=== PATIENT | male | born 1945 | race Hispanic/Latino ===

== ENCOUNTER 2021-03-24 16:49 | Inpatient (IN) | payer MEDICARE ==
[~2021-03-24] VITALS: Ht 172.7 cm; Wt 78.5 kg
[2021-03-24] MEDS ORDERED: DEXAMETHASONE SOD PHOSPHATE 4 MG/ML 1ML VIAL IVP ONE (17:00)
[2021-03-24] MEDS ORDERED: CEFTRIAXONE 1G VIAL 1 GM in 0.9%NACL 100ML 100 ML IV ONE (17:00)
[2021-03-24 17:11] LABS: HEMATOCRIT 39.6 % (42-54); LYMPHOCYTES % (AUTO) 16.8 % (21.0-51.0); MEAN CORPUSCULAR HEMOGLOBIN 29.1 pg (27.0-33.0); MEAN CORPUSCULAR HGB CONC 34.8 g/dL (32.0-36.0); MEAN CORPUSCULAR VOLUME 83.5 fL (79-99); MONOCYTES % (AUTO) 7.3 % (3.0-13.0); NEUTROPHILS % (AUTO) 75.7 % (40.0-77.0); PLATELET COUNT (AUTO) 157 K/uL (130-400); RED BLOOD CELL COUNT(AUTO) 4.74 MIL/uL (4.50-6.20); RED CELL DISTRIBUTION WIDTH 12.9 % (11.0-15.5); WHITE BLOOD COUNT (AUTO) 4.5 K/uL (4.8-10.8)
[2021-03-24 17:22] LABS: ABG BASE EXCESS 1.1 mmol/L (-2.0-3.0); ABG HCO3 24.1 mmol/L (21.0-28.0); ABG PCO2 34 mmHg (35-48)
[2021-03-24 17:25] LABS: CREATININE 0.7 mg/dL (0.5-1.5); POTASSIUM 3.4 mmol/L (3.5-5.1)
[2021-03-24] MEDS ORDERED: CEFTRIAXONE 1G VIAL IVP SCH ×2 (17:30→21:30)
[2021-03-24 17:31] LABS: ALBUMIN 2.8 g/dL (3.5-5.0); BILIRUBIN,TOTAL 0.6 mg/dL (0.2-1.0); CRP QUANTITATIVE 159.7 mg/L (0.00-9.0); TOTAL PROTEIN, SERUM 7.6 g/dL (6.0-8.3)
[2021-03-24] MEDS ORDERED: ALBUTEROL INHALER 90MCG/INH IH PRN (18:00)
[2021-03-24] MEDS: DEXAMETHASONE SOD PHOSPHATE 4 MG/ML 1ML VIAL IVP SCH (18:00)
[2021-03-24] MEDS ORDERED: PHARMACY COMMUNICATION**REMDESIVIR ORDER MISC SCH (18:00)
[2021-03-24] MEDS ORDERED: LACTULOSE 20 GM/30 ML UDCUP PO PRN (18:00)
[2021-03-24] MEDS ORDERED: COMPOUND IV REFRIGERATED 1 EACH IVSOLN MISC PRN (18:30)
[2021-03-24 18:34] LABS: ERYTHROCYTE SEDIMENTATION RATE 100 MM/HR (0-20)
[2021-03-24 18:53] LABS: INR 0.93 (0.85-1.15); PROTHROMBIN TIME 10.2 SEC (9.6-11.6)
[2021-03-24 18:54] LABS: PARTIAL THROMBOPLASTIN TIME 29.8 SEC (26.3-35.5)
[2021-03-24 18:59] LABS: CHOLESTEROL 162 mg/dL (<200); HDL CHOLESTEROL 41 mg/dL (29-71); LDL DIRECT 93 mg/dL (0-99); TRIGLYCERIDES 98 mg/dL (30-200)
[2021-03-24] MEDS: REMDESIVIR (EUA) 520 200 MG in 0.9% NACL 250ML 250 ML IV SCH (19:49)
[2021-03-24 19:51] VITALS: BP 156/63
[2021-03-24 20:24] VITALS: BP 137/67
[2021-03-24] MEDS ORDERED: POTASSIUM CHLORIDE 20MEQ/100ML 100 ML IV PRN (21:00)
[2021-03-24] MEDS ORDERED: LIDOCAINE HCL-MPF 1% 2ML VIAL IV PRN (21:00)
[2021-03-24] MEDS ORDERED: AZITHROMYCIN 500MG+NS 250ML IV SCH (21:00)
[2021-03-24] MEDS ORDERED: 0.9%NACL 1000ML 1,000 ML IV SCH (21:00)
[2021-03-24] MEDS ORDERED: KCL 20 MEQ ERTAB PO PRN (21:00)
[2021-03-24] MEDS: 0.9% NACL 250ML IVPB SCH (21:00)
[2021-03-24] MEDS ORDERED: HYDRALAZINE 20MG/ML VIAL IV PRN (21:30)
[2021-03-24] MEDS: INSULIN HUMULIN R 100 UNIT/ML 3ML SQ SCH (21:36)
[2021-03-24] MEDS: 0.9%NACL 1000ML 1,000 ML IV SCH (22:51)
[2021-03-25] VITALS (7 sets, daily range): BP systolic 106–129; BP diastolic 43–81
[2021-03-25 04:02] LABS: ABG BASE EXCESS -2.2 mmol/L (-2.0-3.0); ABG HCO3 21.7 mmol/L (21.0-28.0); ABG OXYGEN SATURATION 94.2 % (95.0-99.0); ABG PCO2 34 mmHg (35-48)
[2021-03-25 05:50] LABS: BASOPHILS % (AUTO) 0.3 % (0.0-5.0); HEMATOCRIT 37.9 % (42-54); LYMPHOCYTES % (AUTO) 14.4 % (21.0-51.0); MEAN CORPUSCULAR HEMOGLOBIN 29.3 pg (27.0-33.0); MEAN CORPUSCULAR VOLUME 86.1 fL (79-99); MONOCYTES % (AUTO) 7.3 % (3.0-13.0); NEUTROPHILS % (AUTO) 77.4 % (40.0-77.0); PLATELET COUNT (AUTO) 147 K/uL (130-400); WHITE BLOOD COUNT (AUTO) 3.5 K/uL (4.8-10.8)
[2021-03-25 06:09] LABS: HEMOGLOBIN A1C 11.4 % (4.0-6.0)
[2021-03-25 06:20] LABS: ALBUMIN 2.4 g/dL (3.5-5.0); BILIRUBIN,TOTAL 0.4 mg/dL (0.2-1.0); CREATININE 0.7 mg/dL (0.5-1.5); CRP QUANTITATIVE 168.7 mg/L (0.00-9.0); POTASSIUM 3.7 mmol/L (3.5-5.1)
[2021-03-25] MEDS: REMDESIVIR LABS MISC SCH (06:34)
[2021-03-25] MEDS: 0.9%NACL 1000ML 1,000 ML IV SCH (07:41)
[2021-03-25] MEDS: ATORVASTATIN 20 MG TABLET PO SCH (08:15)
[2021-03-25] MEDS: FAMOTIDINE 20MG TAB PO SCH ×2 (08:15→21:43)
[2021-03-25] MEDS: AMLODIPINE 5 MG TAB PO SCH (08:15)
[2021-03-25] MEDS: INSULIN HUMULIN R 100 UNIT/ML 3ML SQ SCH ×4 (08:15→21:44)
[2021-03-25] MEDS ORDERED: ENOXAPARIN SODIUM 40 MG/0.4 ML SYRINGE SQ SCH (09:00)
[2021-03-25] MEDS ORDERED: INSULIN GLARGINE 100 UNITS/ML 10 ML VIAL SQ ONE (09:00)
[2021-03-25] MEDS ORDERED: POTASSIUM CHLORIDE 10% ELIXIR 20 MEQ/15 ML UDCUP PO ONE (09:30)
[2021-03-25] MEDS ORDERED: LORAZEPAM 0.5 MG TABLET ONE (15:32)
[2021-03-25] MEDS: DEXAMETHASONE SOD PHOSPHATE 4 MG/ML 1ML VIAL IVP SCH (18:24)
[2021-03-25] MEDS: REMDESIVIR (EUA) 520 100 MG in 0.9% NACL 250ML 250 ML IV SCH (19:20)
[2021-03-25] MEDS: REMDESIVIR (EUA) 520 200 MG in 0.9% NACL 250ML 250 ML IV SCH (20:00)
[2021-03-25] MEDS: BARICITINIB (EUA) 2 MG TABLET PO SCH (20:57)
[2021-03-25] MEDS: 0.9% NACL 250ML IVPB SCH (21:00)
[2021-03-25] MEDS: ENOXAPARIN SODIUM 40 MG/0.4 ML SYRINGE SQ SCH (21:45)
[2021-03-25] MEDS: ACETAMINOPHEN 325 MG TAB PO PRN (22:16)
[2021-03-26 00:20] VITALS: BP 124/63
[2021-03-26 04:18] VITALS: BP 113/55
[2021-03-26 04:48] LABS: LYMPHOCYTES % (AUTO) 16.5 % (21.0-51.0); MEAN CORPUSCULAR HEMOGLOBIN 29.7 pg (27.0-33.0); MEAN CORPUSCULAR HGB CONC 34.3 g/dL (32.0-36.0); MEAN CORPUSCULAR VOLUME 86.4 fL (79-99); PLATELET COUNT (AUTO) 187 K/uL (130-400); RED BLOOD CELL COUNT(AUTO) 4.28 MIL/uL (4.50-6.20); RED CELL DISTRIBUTION WIDTH 13.2 % (11.0-15.5); WHITE BLOOD COUNT (AUTO) 4.4 K/uL (4.8-10.8)
[2021-03-26 05:05] LABS: ALBUMIN 2.3 g/dL (3.5-5.0); BILIRUBIN,TOTAL 0.4 mg/dL (0.2-1.0); CREATININE 0.8 mg/dL (0.5-1.5); CRP QUANTITATIVE 84.9 mg/L (0.00-9.0); MAGNESIUM 2.4 mg/dL (1.80-2.40); TOTAL PROTEIN, SERUM 6.6 g/dL (6.0-8.3)
[2021-03-26] MEDS: REMDESIVIR LABS MISC SCH (06:01)
[2021-03-26] MEDS: INSULIN HUMULIN R 100 UNIT/ML 3ML SQ SCH ×4 (06:51→20:00)
[2021-03-26 07:52] VITALS: BP 125/58
[2021-03-26] MEDS: ATORVASTATIN 20 MG TABLET PO SCH (09:49)
[2021-03-26] MEDS: AMLODIPINE 5 MG TAB PO SCH (09:49)
[2021-03-26] MEDS: ENOXAPARIN SODIUM 40 MG/0.4 ML SYRINGE SQ SCH ×2 (09:49→19:50)
[2021-03-26] MEDS: FAMOTIDINE 20MG TAB PO SCH ×2 (09:49→19:49)
[2021-03-26 12:07] VITALS: BP 113/80
[2021-03-26] MEDS: BARICITINIB (EUA) 2 MG TABLET PO SCH (14:26)
[2021-03-26 16:36] VITALS: BP 129/66
[2021-03-26] MEDS: FUROSEMIDE 20MG VIAL IV SCH (16:38)
[2021-03-26] MEDS: DEXAMETHASONE SOD PHOSPHATE 4 MG/ML 1ML VIAL IVP SCH (16:41)
[2021-03-26] MEDS: REMDESIVIR (EUA) 520 100 MG in 0.9% NACL 250ML 250 ML IV SCH (19:48)
[2021-03-26] MEDS: INSULIN GLARGINE 100 UNITS/ML 10 ML VIAL SQ SCH (19:59)
[2021-03-26 20:12] VITALS: BP 138/50
[2021-03-26] MEDS: 0.9% NACL 250ML IVPB SCH (20:32)
[2021-03-27] VITALS (7 sets, daily range): BP systolic 101–149; BP diastolic 42–62
[2021-03-27] MEDS: FUROSEMIDE 20MG VIAL IV SCH (01:39)
[2021-03-27 04:39] LABS: HEMATOCRIT 40.2 % (42-54); LYMPHOCYTES % (AUTO) 10.5 % (21.0-51.0); MEAN CORPUSCULAR HEMOGLOBIN 29.2 pg (27.0-33.0); MEAN CORPUSCULAR HGB CONC 33.1 g/dL (32.0-36.0); MEAN CORPUSCULAR VOLUME 88.4 fL (79-99); MONOCYTES % (AUTO) 6.1 % (3.0-13.0); NEUTROPHILS % (AUTO) 82.7 % (40.0-77.0); PLATELET COUNT (AUTO) 225 K/uL (130-400); RED BLOOD CELL COUNT(AUTO) 4.55 MIL/uL (4.50-6.20); RED CELL DISTRIBUTION WIDTH 13.1 % (11.0-15.5); WHITE BLOOD COUNT (AUTO) 6.9 K/uL (4.8-10.8)
[2021-03-27 04:53] LABS: ALBUMIN 2.5 g/dL (3.5-5.0); BILIRUBIN,TOTAL 0.6 mg/dL (0.2-1.0); CREATININE 0.8 mg/dL (0.5-1.5); CRP QUANTITATIVE 45.4 mg/L (0.00-9.0); POTASSIUM 3.8 mmol/L (3.5-5.1)
[2021-03-27] MEDS: INSULIN HUMULIN R 100 UNIT/ML 3ML SQ SCH ×7 (05:42→20:29)
[2021-03-27] MEDS: REMDESIVIR LABS MISC SCH (06:00)
[2021-03-27] MEDS: DOCUSATE SODIUM 100 MG CAP PO SCH ×3 (07:46→22:41)
[2021-03-27] MEDS: AMLODIPINE 5 MG TAB PO SCH (07:46)
[2021-03-27] MEDS: ATORVASTATIN 20 MG TABLET PO SCH (07:46)
[2021-03-27] MEDS: PANTOPRAZOLE 40 MG TAB DR PO SCH ×2 (07:46→09:00)
[2021-03-27] MEDS: ENOXAPARIN SODIUM 40 MG/0.4 ML SYRINGE SQ SCH ×2 (07:47→22:17)
[2021-03-27] MEDS ORDERED: METF-446 PO (08:42)
[2021-03-27] MEDS ORDERED: GLIM4TAB36 PO (08:42)
[2021-03-27] MEDS ORDERED: VALS1TAB76 PO (08:42)
[2021-03-27] MEDS ORDERED: FAMO40TA7 PO (08:42)
[2021-03-27] MEDS ORDERED: LINA5TAB PO (08:42)
[2021-03-27] MEDS ORDERED: TAMS-1 PO (08:42)
[2021-03-27] MEDS ORDERED: SIMV-46 PO (08:42)
[2021-03-27] MEDS: BARICITINIB (EUA) 2 MG TABLET PO SCH (12:10)
[2021-03-27] MEDS: BUSPIRONE HCL 5 MG TABLET PO SCH ×2 (14:20→22:17)
[2021-03-27] MEDS: NYSTATIN 100000 UNIT/ML 5ML UDCUP PO SCH ×2 (16:59→22:17)
[2021-03-27] MEDS: DEXAMETHASONE SOD PHOSPHATE 4 MG/ML 1ML VIAL IVP SCH (17:00)
[2021-03-27] MEDS: 0.9% NACL 250ML IVPB SCH (21:00)
[2021-03-27] MEDS: SENNOSIDES 8.6 MG TABLET PO SCH (22:17)
[2021-03-27] MEDS: INSULIN GLARGINE 100 UNITS/ML 10 ML VIAL SQ SCH (22:18)
[2021-03-27] MEDS: REMDESIVIR (EUA) 520 100 MG in 0.9% NACL 250ML 250 ML IV SCH (23:11)
[2021-03-28 03:59] VITALS: BP 134/85
[2021-03-28 04:28] LABS: HEMATOCRIT 37.8 % (42-54); MEAN CORPUSCULAR HGB CONC 33.1 g/dL (32.0-36.0); MEAN CORPUSCULAR VOLUME 87.7 fL (79-99); MONOCYTES % (AUTO) 5.2 % (3.0-13.0); NEUTROPHILS % (AUTO) 87.2 % (40.0-77.0); PLATELET COUNT (AUTO) 237 K/uL (130-400); RED BLOOD CELL COUNT(AUTO) 4.31 MIL/uL (4.50-6.20); RED CELL DISTRIBUTION WIDTH 12.9 % (11.0-15.5); WHITE BLOOD COUNT (AUTO) 8.4 K/uL (4.8-10.8)
[2021-03-28 04:54] LABS: ALBUMIN 2.4 g/dL (3.5-5.0); BILIRUBIN,TOTAL 0.6 mg/dL (0.2-1.0); CREATININE 0.7 mg/dL (0.5-1.5); CRP QUANTITATIVE 53.6 mg/L (0.00-9.0); POTASSIUM 3.7 mmol/L (3.5-5.1); TOTAL PROTEIN, SERUM 6.7 g/dL (6.0-8.3)
[2021-03-28] MEDS: REMDESIVIR LABS MISC SCH (05:02)
[2021-03-28] MEDS: DOCUSATE SODIUM 100 MG CAP PO SCH ×3 (07:17→23:30)
[2021-03-28] MEDS: INSULIN HUMULIN R 100 UNIT/ML 3ML SQ SCH ×7 (07:19→21:59)
[2021-03-28 08:30] VITALS: BP 111/53
[2021-03-28] MEDS: ATORVASTATIN 20 MG TABLET PO SCH ×2 (09:00→20:23)
[2021-03-28] MEDS: AMLODIPINE 5 MG TAB PO SCH (10:38)
[2021-03-28] MEDS: PANTOPRAZOLE 40 MG TAB DR PO SCH (10:38)
[2021-03-28] MEDS: FLUCONAZOLE 200 MG/NS 100 ML 100 ML IV SCH (10:38)
[2021-03-28] MEDS: BARICITINIB (EUA) 2 MG TABLET PO SCH (10:39)
[2021-03-28] MEDS: ENOXAPARIN SODIUM 40 MG/0.4 ML SYRINGE SQ SCH ×2 (10:39→20:23)
[2021-03-28] MEDS: BUSPIRONE HCL 5 MG TABLET PO SCH ×3 (10:44→20:23)
[2021-03-28] MEDS: NYSTATIN 100000 UNIT/ML 5ML UDCUP PO SCH ×4 (10:47→20:23)
[2021-03-28 12:21] VITALS: BP 120/49
[2021-03-28] MEDS: ACETAMINOPHEN 325 MG TAB PO PRN (15:53)
[2021-03-28 16:31] VITALS: BP 114/48
[2021-03-28] MEDS: DEXAMETHASONE SOD PHOSPHATE 4 MG/ML 1ML VIAL IVP SCH (17:10)
[2021-03-28] MEDS: REMDESIVIR (EUA) 520 100 MG in 0.9% NACL 250ML 250 ML IV SCH (20:19)
[2021-03-28] MEDS: SENNOSIDES 8.6 MG TABLET PO SCH (20:23)
[2021-03-28 20:27] VITALS: BP 127/52
[2021-03-28] MEDS: INSULIN GLARGINE 100 UNITS/ML 10 ML VIAL SQ SCH (22:03)
[2021-03-29] VITALS (7 sets, daily range): BP systolic 90–130; BP diastolic 47–85
[2021-03-29] MEDS: INSULIN HUMULIN R 100 UNIT/ML 3ML SQ SCH ×7 (07:30→21:00)
[2021-03-29] MEDS: NYSTATIN 100000 UNIT/ML 5ML UDCUP PO SCH ×4 (09:06→21:42)
[2021-03-29] MEDS: AMLODIPINE 5 MG TAB PO SCH (09:07)
[2021-03-29] MEDS: PANTOPRAZOLE 40 MG TAB DR PO SCH (09:07)
[2021-03-29] MEDS: BUSPIRONE HCL 5 MG TABLET PO SCH ×3 (09:07→21:42)
[2021-03-29] MEDS: BARICITINIB (EUA) 2 MG TABLET PO SCH (09:07)
[2021-03-29] MEDS: DOCUSATE SODIUM 100 MG CAP PO SCH ×2 (09:07→13:33)
[2021-03-29] MEDS: ENOXAPARIN SODIUM 40 MG/0.4 ML SYRINGE SQ SCH ×2 (09:08→21:43)
[2021-03-29] MEDS: FLUCONAZOLE 200 MG/NS 100 ML 100 ML IV SCH (09:26)
[2021-03-29] MEDS: ACETAMINOPHEN 325 MG TAB PO PRN ×2 (10:31→17:15)
[2021-03-29] MEDS ORDERED: PHARMACY COMMUNICATION MISC SCH (15:00)
[2021-03-29] MEDS ORDERED: COMPOUND IV REFRIGERATED 1 EACH IVSOLN MISC PRN (21:00)
[2021-03-29] MEDS: ATORVASTATIN 20 MG TABLET PO SCH (21:42)
[2021-03-29] MEDS: SENNOSIDES 8.6 MG TABLET PO SCH (21:42)
[2021-03-29] MEDS: DEXAMETHASONE SOD PHOSPHATE 4 MG/ML 1ML VIAL IVP SCH (21:43)
[2021-03-29] MEDS: REMDESIVIR (EUA) 520 100 MG in 0.9% NACL 250ML 250 ML IV SCH (21:47)
[2021-03-29] MEDS: INSULIN GLARGINE 100 UNITS/ML 10 ML VIAL SQ SCH (23:24)
[2021-03-30 03:55] VITALS: BP 110/75
[2021-03-30 05:15] LABS: BASOPHILS % (AUTO) 0.1 % (0.0-5.0); EOSINOPHILS % (AUTO) 0.1 % (0.0-8.0); HEMATOCRIT 37.5 % (42-54); LYMPHOCYTES % (AUTO) 4.1 % (21.0-51.0); MEAN CORPUSCULAR HEMOGLOBIN 29.3 pg (27.0-33.0); MEAN CORPUSCULAR HGB CONC 33.3 g/dL (32.0-36.0); NEUTROPHILS % (AUTO) 93.1 % (40.0-77.0); PLATELET COUNT (AUTO) 298 K/uL (130-400); RED BLOOD CELL COUNT(AUTO) 4.26 MIL/uL (4.50-6.20); RED CELL DISTRIBUTION WIDTH 13.1 % (11.0-15.5); WHITE BLOOD COUNT (AUTO) 9.9 K/uL (4.8-10.8)
[2021-03-30 05:31] LABS: ALBUMIN 2.4 g/dL (3.5-5.0); BILIRUBIN,TOTAL 0.6 mg/dL (0.2-1.0); CREATININE 0.7 mg/dL (0.5-1.5); POTASSIUM 4.3 mmol/L (3.5-5.1)
[2021-03-30] MEDS: DOCUSATE SODIUM 100 MG CAP PO SCH ×4 (06:44→22:18)
[2021-03-30] MEDS: INSULIN HUMULIN R 100 UNIT/ML 3ML SQ SCH ×7 (06:47→20:55)
[2021-03-30 08:00] VITALS: BP 112/40
[2021-03-30] MEDS: REMDESIVIR LABS MISC SCH (09:01)
[2021-03-30] MEDS: FLUCONAZOLE 200 MG/NS 100 ML 100 ML IV SCH (09:47)
[2021-03-30] MEDS: DEXAMETHASONE SOD PHOSPHATE 4 MG/ML 1ML VIAL IVP SCH ×2 (09:48→20:35)
[2021-03-30] MEDS: AMLODIPINE 5 MG TAB PO SCH (09:48)
[2021-03-30] MEDS: ENOXAPARIN SODIUM 40 MG/0.4 ML SYRINGE SQ SCH ×2 (09:49→20:36)
[2021-03-30] MEDS: PANTOPRAZOLE 40 MG TAB DR PO SCH (09:49)
[2021-03-30] MEDS: BARICITINIB (EUA) 2 MG TABLET PO SCH (09:49)
[2021-03-30] MEDS: NYSTATIN 100000 UNIT/ML 5ML UDCUP PO SCH ×4 (09:52→20:33)
[2021-03-30] MEDS: BUSPIRONE HCL 5 MG TABLET PO SCH ×3 (09:52→20:34)
[2021-03-30] MEDS ORDERED: COMPOUND PO MISCELLANEOUS 1 EACH MISC MISC PRN (11:00)
[2021-03-30] MEDS ORDERED: PHARMACY COMMUNICATION MISC SCH (11:00)
[2021-03-30 12:00] VITALS: BP 99/41
[2021-03-30] MEDS: MAG/ALUM/SIMETH 30ML 60 ML, LIDOCAINE HCL 2% VISCOUS 60 ML, DIPHENHYDRAMINE HCL 150 MG PO SCH ×6 (13:54→20:33)
[2021-03-30 16:00] VITALS: BP 102/54
[2021-03-30] MEDS: LACTULOSE 20 GM/30 ML UDCUP PO SCH ×2 (16:30→20:32)
[2021-03-30 20:31] VITALS: BP 111/69
[2021-03-30] MEDS: REMDESIVIR (EUA) 520 100 MG in 0.9% NACL 250ML 250 ML IV SCH (20:32)
[2021-03-30] MEDS: ATORVASTATIN 20 MG TABLET PO SCH (20:34)
[2021-03-30] MEDS: SENNOSIDES 8.6 MG TABLET PO SCH (20:34)
[2021-03-30] MEDS: INSULIN GLARGINE 100 UNITS/ML 10 ML VIAL SQ SCH (20:54)
[2021-03-30 23:33] VITALS: BP 94/69
[2021-03-31 03:52] VITALS: BP 110/67
[2021-03-31] MEDS: REMDESIVIR LABS MISC SCH (05:08)
[2021-03-31] MEDS: INSULIN HUMULIN R 100 UNIT/ML 3ML SQ SCH ×7 (06:19→21:00)
[2021-03-31] MEDS: DOCUSATE SODIUM 100 MG CAP PO SCH ×3 (06:22→21:55)
[2021-03-31 07:46] VITALS: BP 132/59
[2021-03-31] MEDS: BARICITINIB (EUA) 2 MG TABLET PO SCH (10:17)
[2021-03-31] MEDS: PANTOPRAZOLE 40 MG TAB DR PO SCH (10:17)
[2021-03-31] MEDS: NYSTATIN 100000 UNIT/ML 5ML UDCUP PO SCH ×4 (10:17→21:32)
[2021-03-31] MEDS: AMLODIPINE 5 MG TAB PO SCH (10:18)
[2021-03-31] MEDS: LACTULOSE 20 GM/30 ML UDCUP PO SCH ×2 (10:18→21:17)
[2021-03-31] MEDS: DEXAMETHASONE SOD PHOSPHATE 4 MG/ML 1ML VIAL IVP SCH ×2 (10:19→21:19)
[2021-03-31] MEDS: BUSPIRONE HCL 5 MG TABLET PO SCH ×3 (10:19→21:16)
[2021-03-31] MEDS: ENOXAPARIN SODIUM 40 MG/0.4 ML SYRINGE SQ SCH ×2 (10:20→21:55)
[2021-03-31] MEDS: FLUCONAZOLE 200 MG/NS 100 ML 100 ML IV SCH (10:20)
[2021-03-31] MEDS: MAG/ALUM/SIMETH 30ML 60 ML, LIDOCAINE HCL 2% VISCOUS 60 ML, DIPHENHYDRAMINE HCL 150 MG PO SCH ×9 (10:22→21:17)
[2021-03-31 11:47] VITALS: BP 105/52
[2021-03-31 16:13] VITALS: BP 126/53
[2021-03-31 19:53] VITALS: BP 127/56
[2021-03-31] MEDS ORDERED: NON-FORMULARY MEDICATION 1 EACH (Simvastatin 1 TAB) PO SCH (21:00)
[2021-03-31] MEDS: SENNOSIDES 8.6 MG TABLET PO SCH (21:16)
[2021-03-31] MEDS: TAMSULOSIN HCL 0.4 MG CAP.ER.24H PO SCH (21:16)
[2021-03-31] MEDS: ATORVASTATIN 20 MG TABLET PO SCH (21:16)
[2021-03-31] MEDS: REMDESIVIR (EUA) 520 100 MG in 0.9% NACL 250ML 250 ML IV SCH (21:19)
[2021-03-31] MEDS ORDERED: ENOXAPARIN SODIUM 80 MG/0.8 ML SQ ONE (21:30)
[2021-03-31] MEDS: INSULIN GLARGINE 100 UNITS/ML 10 ML VIAL SQ SCH (21:31)
[2021-04-01] VITALS (7 sets, daily range): BP systolic 103–131; BP diastolic 44–62
[2021-04-01 04:18] LABS: BASOPHILS % (AUTO) 0.1 % (0.0-5.0); HEMATOCRIT 38.8 % (42-54); LYMPHOCYTES % (AUTO) 4.8 % (21.0-51.0); MEAN CORPUSCULAR HEMOGLOBIN 29.6 pg (27.0-33.0); MEAN CORPUSCULAR HGB CONC 33.5 g/dL (32.0-36.0); MEAN CORPUSCULAR VOLUME 88.4 fL (79-99); MONOCYTES % (AUTO) 4.9 % (3.0-13.0); NEUTROPHILS % (AUTO) 89.4 % (40.0-77.0); PLATELET COUNT (AUTO) 311 K/uL (130-400); RED BLOOD CELL COUNT(AUTO) 4.39 MIL/uL (4.50-6.20); RED CELL DISTRIBUTION WIDTH 13.2 % (11.0-15.5); WHITE BLOOD COUNT (AUTO) 12.6 K/uL (4.8-10.8)
[2021-04-01 04:55] LABS: ALBUMIN 2.4 g/dL (3.5-5.0); BILIRUBIN,TOTAL 0.5 mg/dL (0.2-1.0); CREATININE 0.7 mg/dL (0.5-1.5); CRP QUANTITATIVE 42.6 mg/L (0.00-9.0); POTASSIUM 4.4 mmol/L (3.5-5.1)
[2021-04-01] MEDS: REMDESIVIR LABS MISC SCH (05:40)
[2021-04-01] MEDS: INSULIN HUMULIN R 100 UNIT/ML 3ML SQ SCH ×7 (06:22→20:38)
[2021-04-01] MEDS: DOCUSATE SODIUM 100 MG CAP PO SCH ×3 (06:35→23:24)
[2021-04-01] MEDS: LACTULOSE 20 GM/30 ML UDCUP PO SCH ×2 (07:41→20:34)
[2021-04-01] MEDS: DEXAMETHASONE SOD PHOSPHATE 4 MG/ML 1ML VIAL IVP SCH (09:00)
[2021-04-01] MEDS: FLUCONAZOLE 200 MG/NS 100 ML 100 ML IV SCH (09:00)
[2021-04-01] MEDS: BUSPIRONE HCL 5 MG TABLET PO SCH ×3 (09:06→20:34)
[2021-04-01] MEDS: MAG/ALUM/SIMETH 30ML 60 ML, LIDOCAINE HCL 2% VISCOUS 60 ML, DIPHENHYDRAMINE HCL 150 MG PO SCH ×9 (09:06→21:00)
[2021-04-01] MEDS: BARICITINIB (EUA) 2 MG TABLET PO SCH (09:06)
[2021-04-01] MEDS: NYSTATIN 100000 UNIT/ML 5ML UDCUP PO SCH ×4 (09:06→20:35)
[2021-04-01] MEDS: CLOPIDOGREL 75MG TAB PO SCH (09:14)
[2021-04-01] MEDS: PANTOPRAZOLE 40 MG TAB DR PO SCH (09:14)
[2021-04-01] MEDS: ENOXAPARIN SODIUM 40 MG/0.4 ML SYRINGE SQ SCH ×2 (09:15→20:37)
[2021-04-01] MEDS: FLUCONAZOLE 100 MG TAB PO SCH (11:33)
[2021-04-01] MEDS: REMDESIVIR (EUA) 520 100 MG in 0.9% NACL 250ML 250 ML IV SCH (20:34)
[2021-04-01] MEDS: ATORVASTATIN 20 MG TABLET PO SCH (20:34)
[2021-04-01] MEDS: TAMSULOSIN HCL 0.4 MG CAP.ER.24H PO SCH (20:35)
[2021-04-01] MEDS: SENNOSIDES 8.6 MG TABLET PO SCH (20:35)
[2021-04-01] MEDS: INSULIN GLARGINE 100 UNITS/ML 10 ML VIAL SQ SCH (20:41)
[2021-04-01] MEDS: BENZONATATE 100 MG CAPSULE PO PRN (23:58)
[2021-04-02] MEDS: GUAIFENESIN-DM 200/20 MG 10 ML PO PRN (00:11)
[2021-04-02 04:18] VITALS: BP 134/71
[2021-04-02 04:21] LABS: BASOPHILS % (AUTO) 0.1 % (0.0-5.0); EOSINOPHILS % (AUTO) 0.1 % (0.0-8.0); HEMATOCRIT 39.1 % (42-54); LYMPHOCYTES % (AUTO) 4.5 % (21.0-51.0); MEAN CORPUSCULAR HGB CONC 33.2 g/dL (32.0-36.0); MEAN CORPUSCULAR VOLUME 87.3 fL (79-99); MONOCYTES % (AUTO) 5.4 % (3.0-13.0); PLATELET COUNT (AUTO) 324 K/uL (130-400); RED BLOOD CELL COUNT(AUTO) 4.48 MIL/uL (4.50-6.20); RED CELL DISTRIBUTION WIDTH 13.2 % (11.0-15.5); WHITE BLOOD COUNT (AUTO) 17.4 K/uL (4.8-10.8)
[2021-04-02 04:43] LABS: ALBUMIN 2.5 g/dL (3.5-5.0); BILIRUBIN,TOTAL 0.6 mg/dL (0.2-1.0); CREATININE 0.8 mg/dL (0.5-1.5); POTASSIUM 4.1 mmol/L (3.5-5.1); TOTAL PROTEIN, SERUM 7.2 g/dL (6.0-8.3)
[2021-04-02] MEDS: REMDESIVIR LABS MISC SCH (06:03)
[2021-04-02] MEDS: INSULIN HUMULIN R 100 UNIT/ML 3ML SQ SCH ×7 (07:30→20:33)
[2021-04-02 08:09] VITALS: BP 125/64
[2021-04-02] MEDS: DEXAMETHASONE SOD PHOSPHATE 4 MG/ML 1ML VIAL IVP SCH (08:57)
[2021-04-02] MEDS: NYSTATIN 100000 UNIT/ML 5ML UDCUP PO SCH ×4 (08:58→20:32)
[2021-04-02] MEDS: PANTOPRAZOLE 40 MG TAB DR PO SCH (08:58)
[2021-04-02] MEDS: BARICITINIB (EUA) 2 MG TABLET PO SCH (08:58)
[2021-04-02] MEDS: CLOPIDOGREL 75MG TAB PO SCH (08:58)
[2021-04-02] MEDS: LACTULOSE 20 GM/30 ML UDCUP PO SCH ×2 (08:58→20:32)
[2021-04-02] MEDS: BUSPIRONE HCL 5 MG TABLET PO SCH ×3 (08:58→20:31)
[2021-04-02] MEDS: FLUCONAZOLE 100 MG TAB PO SCH (08:59)
[2021-04-02] MEDS: ENOXAPARIN SODIUM 40 MG/0.4 ML SYRINGE SQ SCH ×2 (09:00→21:26)
[2021-04-02] MEDS: DOCUSATE SODIUM 100 MG CAP PO SCH ×3 (09:11→20:32)
[2021-04-02] MEDS: MAG/ALUM/SIMETH 30ML 60 ML, LIDOCAINE HCL 2% VISCOUS 60 ML, DIPHENHYDRAMINE HCL 150 MG PO SCH ×6 (09:15→13:34)
[2021-04-02 11:44] VITALS: BP 126/66
[2021-04-02 15:55] VITALS: BP 135/63
[2021-04-02 19:40] VITALS: BP 123/56
[2021-04-02] MEDS: REMDESIVIR (EUA) 520 100 MG in 0.9% NACL 250ML 250 ML IV SCH (20:31)
[2021-04-02] MEDS: TAMSULOSIN HCL 0.4 MG CAP.ER.24H PO SCH (20:32)
[2021-04-02] MEDS: ATORVASTATIN 20 MG TABLET PO SCH (20:32)
[2021-04-02] MEDS: SENNOSIDES 8.6 MG TABLET PO SCH (20:32)
[2021-04-02] MEDS: NACL NASAL SPRAY 120 SPRAY/BOTTLE NS PRN (20:32)
[2021-04-02] MEDS: BENZONATATE 100 MG CAPSULE PO PRN (20:32)
[2021-04-02] MEDS: TRAZODONE HCL 50 MG TAB PO SCH (20:33)
[2021-04-02] MEDS: INSULIN GLARGINE 100 UNITS/ML 10 ML VIAL SQ SCH (21:00)
[2021-04-02 23:44] VITALS: BP 123/56
[2021-04-03 03:22] VITALS: BP 92/52
[2021-04-03 04:52] LABS: BASOPHILS % (AUTO) 0.1 % (0.0-5.0); HEMATOCRIT 39.7 % (42-54); LYMPHOCYTES % (AUTO) 4.6 % (21.0-51.0); MEAN CORPUSCULAR HEMOGLOBIN 29.2 pg (27.0-33.0); MEAN CORPUSCULAR HGB CONC 33.2 g/dL (32.0-36.0); MEAN CORPUSCULAR VOLUME 87.8 fL (79-99); MONOCYTES % (AUTO) 4.3 % (3.0-13.0); NEUTROPHILS % (AUTO) 90.4 % (40.0-77.0); PLATELET COUNT (AUTO) 303 K/uL (130-400); RED BLOOD CELL COUNT(AUTO) 4.52 MIL/uL (4.50-6.20); RED CELL DISTRIBUTION WIDTH 13.3 % (11.0-15.5)
[2021-04-03 05:16] LABS: ALBUMIN 2.4 g/dL (3.5-5.0); BILIRUBIN,TOTAL 0.5 mg/dL (0.2-1.0); CREATININE 0.6 mg/dL (0.5-1.5); POTASSIUM 3.7 mmol/L (3.5-5.1); TOTAL PROTEIN, SERUM 7.2 g/dL (6.0-8.3)
[2021-04-03] MEDS: MAG/ALUM/SIMETH 30ML 60 ML, LIDOCAINE HCL 2% VISCOUS 60 ML, DIPHENHYDRAMINE HCL 150 MG PO SCH ×12 (05:23→20:56)
[2021-04-03] MEDS: BENZONATATE 100 MG CAPSULE PO PRN ×2 (05:24→22:17)
[2021-04-03] MEDS: ACETAMINOPHEN 325 MG TAB PO PRN ×2 (05:24→22:24)
[2021-04-03] MEDS: GUAIFENESIN-DM 200/20 MG 10 ML PO PRN ×2 (05:25→20:56)
[2021-04-03] MEDS: INSULIN HUMULIN R 100 UNIT/ML 3ML SQ SCH ×7 (05:44→20:57)
[2021-04-03] MEDS: PANTOPRAZOLE 40 MG TAB DR PO SCH (08:18)
[2021-04-03] MEDS: LACTULOSE 20 GM/30 ML UDCUP PO SCH ×2 (08:18→20:57)
[2021-04-03] MEDS: BARICITINIB (EUA) 2 MG TABLET PO SCH (08:18)
[2021-04-03] MEDS: BUSPIRONE HCL 5 MG TABLET PO SCH ×3 (08:18→20:56)
[2021-04-03] MEDS: DOCUSATE SODIUM 100 MG CAP PO SCH ×3 (08:18→23:30)
[2021-04-03] MEDS: FLUCONAZOLE 100 MG TAB PO SCH (08:19)
[2021-04-03] MEDS: CLOPIDOGREL 75MG TAB PO SCH (08:19)
[2021-04-03] MEDS: NYSTATIN 100000 UNIT/ML 5ML UDCUP PO SCH ×2 (08:19→14:59)
[2021-04-03] MEDS: ENOXAPARIN SODIUM 40 MG/0.4 ML SYRINGE SQ SCH ×2 (08:20→20:56)
[2021-04-03] MEDS: DEXAMETHASONE SOD PHOSPHATE 4 MG/ML 1ML VIAL IVP SCH (08:20)
[2021-04-03 08:55] VITALS: BP 125/62
[2021-04-03 12:22] VITALS: BP 124/57
[2021-04-03 16:30] VITALS: BP 117/72
[2021-04-03 19:34] VITALS: BP 120/72
[2021-04-03] MEDS: TAMSULOSIN HCL 0.4 MG CAP.ER.24H PO SCH (20:56)
[2021-04-03] MEDS: SENNOSIDES 8.6 MG TABLET PO SCH (20:56)
[2021-04-03] MEDS: TRAZODONE HCL 50 MG TAB PO SCH (20:56)
[2021-04-03] MEDS: ATORVASTATIN 20 MG TABLET PO SCH (20:56)
[2021-04-03] MEDS: INSULIN GLARGINE 100 UNITS/ML 10 ML VIAL SQ SCH (20:57)
[2021-04-03] MEDS: SOLU-MEDROL 40MG VIAL IVP SCH (22:16)
[2021-04-03] MEDS: ONDANSETRON 4MG INJ IV PRN (22:17)
[2021-04-03 23:13] VITALS: BP 109/55
[2021-04-04 03:21] VITALS: BP 118/50
[2021-04-04 05:02] LABS: CRP QUANTITATIVE 230.1 mg/L (0.00-9.0)
[2021-04-04] MEDS: INSULIN HUMULIN R 100 UNIT/ML 3ML SQ SCH ×7 (06:47→21:28)
[2021-04-04 08:05] VITALS: BP 128/84
[2021-04-04] MEDS: DOCUSATE SODIUM 100 MG CAP PO SCH ×3 (08:41→23:30)
[2021-04-04] MEDS: CLOPIDOGREL 75MG TAB PO SCH (08:41)
[2021-04-04] MEDS: PANTOPRAZOLE 40 MG TAB DR PO SCH (08:43)
[2021-04-04] MEDS: FLUCONAZOLE 100 MG TAB PO SCH (08:43)
[2021-04-04] MEDS: ENOXAPARIN SODIUM 40 MG/0.4 ML SYRINGE SQ SCH (08:43)
[2021-04-04] MEDS: BARICITINIB (EUA) 2 MG TABLET PO SCH (08:43)
[2021-04-04] MEDS: SOLU-MEDROL 40MG VIAL IVP SCH ×2 (08:51→21:27)
[2021-04-04] MEDS: BUSPIRONE HCL 5 MG TABLET PO SCH ×3 (08:51→21:26)
[2021-04-04] MEDS: MAG/ALUM/SIMETH 30ML 60 ML, LIDOCAINE HCL 2% VISCOUS 60 ML, DIPHENHYDRAMINE HCL 150 MG PO SCH ×9 (09:00→21:27)
[2021-04-04] MEDS ORDERED: ENOXAPARIN SODIUM 80 MG/0.8 ML SQ ONE (09:00)
[2021-04-04] MEDS: LACTULOSE 20 GM/30 ML UDCUP PO SCH ×2 (10:58→21:26)
[2021-04-04 12:00] VITALS: BP 133/71
[2021-04-04] MEDS ORDERED: VANCOMYCIN PROTOCOL PER PHARMACY IV SCH (15:00)
[2021-04-04] MEDS ORDERED: RENAL DOSE IV SCH (15:00)
[2021-04-04] MEDS ORDERED: COMPOUND IV REFRIGERATED 1 EACH IVSOLN MISC PRN (15:30)
[2021-04-04] MEDS ORDERED: 0.9%NACL 100ML 100 ML ONE (16:45)
[2021-04-04 16:46] VITALS: BP 135/66
[2021-04-04] MEDS: CEFEPIME HCL 2 GM VIAL IVP SCH ×2 (16:51→21:30)
[2021-04-04] MEDS: VANCOMYCIN 1.25GM/NS 250ML IVPB SCH ×2 (18:00)
[2021-04-04 20:10] VITALS: BP 115/71
[2021-04-04] MEDS: BENZONATATE 100 MG CAPSULE PO PRN (21:27)
[2021-04-04] MEDS: SENNOSIDES 8.6 MG TABLET PO SCH (21:27)
[2021-04-04] MEDS: TAMSULOSIN HCL 0.4 MG CAP.ER.24H PO SCH (21:27)
[2021-04-04] MEDS: ATORVASTATIN 20 MG TABLET PO SCH (21:27)
[2021-04-04] MEDS: TRAZODONE HCL 50 MG TAB PO SCH (21:27)
[2021-04-04] MEDS: INSULIN GLARGINE 100 UNITS/ML 10 ML VIAL SQ SCH (21:29)
[2021-04-04 23:34] VITALS: BP 102/48
[2021-04-05] VITALS (7 sets, daily range): BP systolic 102–141; BP diastolic 62–77
[2021-04-05 05:16] LABS: BASOPHILS % (AUTO) 0.1 % (0.0-5.0); LYMPHOCYTES % (AUTO) 2.3 % (21.0-51.0); MEAN CORPUSCULAR HEMOGLOBIN 29.4 pg (27.0-33.0); MEAN CORPUSCULAR HGB CONC 32.9 g/dL (32.0-36.0); MEAN CORPUSCULAR VOLUME 89.3 fL (79-99); MONOCYTES % (AUTO) 2.1 % (3.0-13.0); NEUTROPHILS % (AUTO) 94.8 % (40.0-77.0); PLATELET COUNT (AUTO) 298 K/uL (130-400); RED BLOOD CELL COUNT(AUTO) 4.59 MIL/uL (4.50-6.20); RED CELL DISTRIBUTION WIDTH 13.2 % (11.0-15.5); WHITE BLOOD COUNT (AUTO) 16.3 K/uL (4.8-10.8)
[2021-04-05 05:41] LABS: ALBUMIN 2.3 g/dL (3.5-5.0); BILIRUBIN,TOTAL 0.6 mg/dL (0.2-1.0); CREATININE 0.7 mg/dL (0.5-1.5); CRP QUANTITATIVE 110.5 mg/L (0.00-9.0); MAGNESIUM 2.3 mg/dL (1.80-2.40); PHOSPHORUS 3.1 mg/dL (2.5-4.9); POTASSIUM 4.6 mmol/L (3.5-5.1); TOTAL PROTEIN, SERUM 7.2 g/dL (6.0-8.3)
[2021-04-05 05:45] LABS: PLATELET MORPHOLOGY PLT CLUMPS PRESENT
[2021-04-05] MEDS: CEFEPIME HCL 2 GM VIAL IVP SCH ×3 (06:25→22:32)
[2021-04-05] MEDS: INSULIN HUMULIN R 100 UNIT/ML 3ML SQ SCH ×7 (06:29→20:12)
[2021-04-05] MEDS: PANTOPRAZOLE 40 MG TAB DR PO SCH (07:19)
[2021-04-05] MEDS: DOCUSATE SODIUM 100 MG CAP PO SCH ×3 (07:30→22:32)
[2021-04-05] MEDS: CLOPIDOGREL 75MG TAB PO SCH (09:00)
[2021-04-05] MEDS: ENOXAPARIN SODIUM 80 MG/0.8 ML SQ SCH ×2 (09:00→21:53)
[2021-04-05] MEDS: FLUCONAZOLE 100 MG TAB PO SCH (09:00)
[2021-04-05] MEDS: LACTULOSE 20 GM/30 ML UDCUP PO SCH ×2 (09:00→22:23)
[2021-04-05] MEDS: BUSPIRONE HCL 5 MG TABLET PO SCH ×3 (09:00→22:27)
[2021-04-05] MEDS: MAG/ALUM/SIMETH 30ML 60 ML, LIDOCAINE HCL 2% VISCOUS 60 ML, DIPHENHYDRAMINE HCL 150 MG PO SCH ×9 (09:00→21:00)
[2021-04-05] MEDS: BARICITINIB (EUA) 2 MG TABLET PO SCH (09:00)
[2021-04-05] MEDS: SOLU-MEDROL 40MG VIAL IVP SCH ×2 (10:40→22:27)
[2021-04-05] MEDS: PANTOPRAZOLE 40 MG/VIAL IVP SCH (10:40)
[2021-04-05] MEDS: VANCOMYCIN 1.25GM/NS 250ML IVPB SCH ×4 (10:41→22:33)
[2021-04-05] MEDS: TRAZODONE HCL 50 MG TAB PO SCH (22:23)
[2021-04-05] MEDS: TAMSULOSIN HCL 0.4 MG CAP.ER.24H PO SCH (22:26)
[2021-04-05] MEDS: ATORVASTATIN 20 MG TABLET PO SCH (22:26)
[2021-04-05] MEDS: SENNOSIDES 8.6 MG TABLET PO SCH (22:27)
[2021-04-05] MEDS: INSULIN GLARGINE 100 UNITS/ML 10 ML VIAL SQ SCH (22:28)
[2021-04-06 04:10] VITALS: BP 134/82
[2021-04-06] MEDS: DOCUSATE SODIUM 100 MG CAP PO SCH ×3 (04:41→23:08)
[2021-04-06 05:05] LABS: BASOPHILS % (AUTO) 0.1 % (0.0-5.0); HEMATOCRIT 42.9 % (42-54); LYMPHOCYTES % (AUTO) 2.6 % (21.0-51.0); MEAN CORPUSCULAR HEMOGLOBIN 29.1 pg (27.0-33.0); MEAN CORPUSCULAR HGB CONC 31.7 g/dL (32.0-36.0); MEAN CORPUSCULAR VOLUME 91.7 fL (79-99); NEUTROPHILS % (AUTO) 94.8 % (40.0-77.0); PLATELET COUNT (AUTO) 275 K/uL (130-400); RED BLOOD CELL COUNT(AUTO) 4.68 MIL/uL (4.50-6.20); RED CELL DISTRIBUTION WIDTH 13.2 % (11.0-15.5); WHITE BLOOD COUNT (AUTO) 16.3 K/uL (4.8-10.8)
[2021-04-06 05:24] LABS: ALBUMIN 2.3 g/dL (3.5-5.0); BILIRUBIN,TOTAL 0.6 mg/dL (0.2-1.0); CREATININE 0.8 mg/dL (0.5-1.5); CRP QUANTITATIVE 62.4 mg/L (0.00-9.0); POTASSIUM 4.5 mmol/L (3.5-5.1); TOTAL PROTEIN, SERUM 7.3 g/dL (6.0-8.3)
[2021-04-06] MEDS: CEFEPIME HCL 2 GM VIAL IVP SCH ×3 (05:37→23:08)
[2021-04-06] MEDS: INSULIN HUMULIN R 100 UNIT/ML 3ML SQ SCH ×7 (06:18→20:37)
[2021-04-06 08:10] VITALS: BP 123/62
[2021-04-06] MEDS: LACTULOSE 20 GM/30 ML UDCUP PO SCH ×2 (09:00→20:29)
[2021-04-06] MEDS: MAG/ALUM/SIMETH 30ML 60 ML, LIDOCAINE HCL 2% VISCOUS 60 ML, DIPHENHYDRAMINE HCL 150 MG PO SCH ×9 (09:00→20:39)
[2021-04-06] MEDS: SOLU-MEDROL 40MG VIAL IVP SCH ×2 (09:04→20:29)
[2021-04-06] MEDS: PANTOPRAZOLE 40 MG/VIAL IVP SCH (09:04)
[2021-04-06] MEDS: FLUCONAZOLE 100 MG TAB PO SCH (09:04)
[2021-04-06] MEDS: CLOPIDOGREL 75MG TAB PO SCH (09:04)
[2021-04-06] MEDS: ENOXAPARIN SODIUM 80 MG/0.8 ML SQ SCH ×2 (09:05→20:39)
[2021-04-06] MEDS: BUSPIRONE HCL 5 MG TABLET PO SCH ×3 (09:06→20:28)
[2021-04-06] MEDS: VANCOMYCIN 1.25GM/NS 250ML IVPB SCH ×4 (09:07→20:36)
[2021-04-06 11:20] VITALS: BP 143/59
[2021-04-06] MEDS: BARICITINIB (EUA) 2 MG TABLET PO SCH (12:16)
[2021-04-06 15:15] VITALS: BP 153/87
[2021-04-06] MEDS ORDERED: MORPHINE PCA 50MG/50ML NS IV SCH (16:00)
[2021-04-06] MEDS ORDERED: MORPHINE 2 MG SYG IVP ONE (16:29)
[2021-04-06] MEDS: GUAIFENESIN-DM 200/20 MG 10 ML PO SCH ×3 (16:45→23:08)
[2021-04-06 20:19] VITALS: BP 128/79
[2021-04-06] MEDS: TRAZODONE HCL 50 MG TAB PO SCH (20:28)
[2021-04-06] MEDS: SENNOSIDES 8.6 MG TABLET PO SCH (20:29)
[2021-04-06] MEDS: TAMSULOSIN HCL 0.4 MG CAP.ER.24H PO SCH (20:29)
[2021-04-06] MEDS: ATORVASTATIN 20 MG TABLET PO SCH (20:29)
[2021-04-06] MEDS: INSULIN GLARGINE 100 UNITS/ML 10 ML VIAL SQ SCH (20:38)
[2021-04-06 23:53] VITALS: BP 132/67
[2021-04-07] VITALS (10 sets, daily range): BP systolic 110–140; BP diastolic 43–70
[2021-04-07] MEDS: GUAIFENESIN-DM 200/20 MG 10 ML PO SCH ×6 (04:05→20:45)
[2021-04-07 04:15] LABS: HEMATOCRIT 42.5 % (42-54); LYMPHOCYTES % (AUTO) 3.5 % (21.0-51.0); MEAN CORPUSCULAR HEMOGLOBIN 28.7 pg (27.0-33.0); MEAN CORPUSCULAR HGB CONC 31.5 g/dL (32.0-36.0); MONOCYTES % (AUTO) 2.9 % (3.0-13.0); NEUTROPHILS % (AUTO) 92.9 % (40.0-77.0); PLATELET COUNT (AUTO) 264 K/uL (130-400); RED BLOOD CELL COUNT(AUTO) 4.67 MIL/uL (4.50-6.20); RED CELL DISTRIBUTION WIDTH 13.2 % (11.0-15.5)
[2021-04-07 04:36] LABS: ALBUMIN 2.3 g/dL (3.5-5.0); BILIRUBIN,TOTAL 0.6 mg/dL (0.2-1.0); CREATININE 0.7 mg/dL (0.5-1.5); POTASSIUM 4.3 mmol/L (3.5-5.1); TOTAL PROTEIN, SERUM 7.2 g/dL (6.0-8.3)
[2021-04-07] MEDS: CEFEPIME HCL 2 GM VIAL IVP SCH ×3 (06:04→22:40)
[2021-04-07] MEDS: INSULIN HUMULIN R 100 UNIT/ML 3ML SQ SCH ×8 (06:04→20:44)
[2021-04-07] MEDS: DOCUSATE SODIUM 100 MG CAP PO SCH ×3 (07:57→22:40)
[2021-04-07] MEDS: FLUCONAZOLE 100 MG TAB PO SCH (07:58)
[2021-04-07] MEDS: LACTULOSE 20 GM/30 ML UDCUP PO SCH ×2 (07:58→20:45)
[2021-04-07] MEDS: CLOPIDOGREL 75MG TAB PO SCH (07:58)
[2021-04-07] MEDS: PANTOPRAZOLE 40 MG/VIAL IVP SCH (07:58)
[2021-04-07] MEDS: MAG/ALUM/SIMETH 30ML 60 ML, LIDOCAINE HCL 2% VISCOUS 60 ML, DIPHENHYDRAMINE HCL 150 MG PO SCH ×9 (07:59→20:49)
[2021-04-07] MEDS: ENOXAPARIN SODIUM 80 MG/0.8 ML SQ SCH ×2 (08:05→20:46)
[2021-04-07] MEDS: VANCOMYCIN 1.25GM/NS 250ML IVPB SCH ×4 (08:06→20:52)
[2021-04-07] MEDS: DEXMEDETOMIDINE HCL 400 MCG in 0.9%NACL 100ML 100 ML IV SCH ×2 (08:10→20:48)
[2021-04-07] MEDS: BARICITINIB (EUA) 2 MG TABLET PO SCH (08:41)
[2021-04-07] MEDS: BUSPIRONE HCL 5 MG TABLET PO SCH ×3 (08:41→20:46)
[2021-04-07] MEDS: BIOTENE 44.3 ML SOLUTION MM SCH ×2 (15:57→20:49)
[2021-04-07] MEDS: TRAZODONE HCL 50 MG TAB PO SCH (20:46)
[2021-04-07] MEDS: TAMSULOSIN HCL 0.4 MG CAP.ER.24H PO SCH (20:46)
[2021-04-07] MEDS: ATORVASTATIN 20 MG TABLET PO SCH (20:46)
[2021-04-07] MEDS: SENNOSIDES 8.6 MG TABLET PO SCH (20:46)
[2021-04-07] MEDS: INSULIN GLARGINE 100 UNITS/ML 10 ML VIAL SQ SCH (20:47)
[2021-04-08] VITALS (23 sets, daily range): BP systolic 101–153; BP diastolic 39–94
[2021-04-08] MEDS: GUAIFENESIN-DM 200/20 MG 10 ML PO SCH ×6 (00:28→20:22)
[2021-04-08] MEDS: INSULIN HUMULIN R 100 UNIT/ML 3ML SQ SCH ×6 (05:03→17:49)
[2021-04-08 05:16] LABS: BASOPHILS % (AUTO) 0.1 % (0.0-5.0); EOSINOPHILS % (AUTO) 0.4 % (0.0-8.0); HEMATOCRIT 39.3 % (42-54); LYMPHOCYTES % (AUTO) 4.2 % (21.0-51.0); MEAN CORPUSCULAR HEMOGLOBIN 29.3 pg (27.0-33.0); MEAN CORPUSCULAR HGB CONC 32.3 g/dL (32.0-36.0); MEAN CORPUSCULAR VOLUME 90.8 fL (79-99); MONOCYTES % (AUTO) 3.8 % (3.0-13.0); NEUTROPHILS % (AUTO) 90.9 % (40.0-77.0); PLATELET COUNT (AUTO) 206 K/uL (130-400); RED BLOOD CELL COUNT(AUTO) 4.33 MIL/uL (4.50-6.20); RED CELL DISTRIBUTION WIDTH 13.2 % (11.0-15.5); WHITE BLOOD COUNT (AUTO) 15.6 K/uL (4.8-10.8)
[2021-04-08 05:32] LABS: ALBUMIN 2.1 g/dL (3.5-5.0); BILIRUBIN,TOTAL 0.6 mg/dL (0.2-1.0); CREATININE 0.5 mg/dL (0.5-1.5); TOTAL PROTEIN, SERUM 6.8 g/dL (6.0-8.3)
[2021-04-08] MEDS: CEFEPIME HCL 2 GM VIAL IVP SCH ×3 (06:40→20:22)
[2021-04-08] MEDS: DOCUSATE SODIUM 100 MG CAP PO SCH ×3 (07:30→23:14)
[2021-04-08] MEDS: BUSPIRONE HCL 5 MG TABLET PO SCH ×3 (08:50→20:23)
[2021-04-08] MEDS: CLOPIDOGREL 75MG TAB PO SCH (08:50)
[2021-04-08] MEDS: MAG/ALUM/SIMETH 30ML 60 ML, LIDOCAINE HCL 2% VISCOUS 60 ML, DIPHENHYDRAMINE HCL 150 MG PO SCH ×9 (08:51→20:24)
[2021-04-08] MEDS: ENOXAPARIN SODIUM 80 MG/0.8 ML SQ SCH ×2 (08:51→20:24)
[2021-04-08] MEDS: BIOTENE 44.3 ML SOLUTION MM SCH ×3 (08:51→20:28)
[2021-04-08] MEDS: LACTULOSE 20 GM/30 ML UDCUP PO SCH ×2 (08:51→20:22)
[2021-04-08] MEDS: BARICITINIB (EUA) 2 MG TABLET PO SCH (08:51)
[2021-04-08] MEDS: PANTOPRAZOLE 40 MG/VIAL IVP SCH (08:52)
[2021-04-08] MEDS: FLUCONAZOLE 100 MG TAB PO SCH (08:56)
[2021-04-08] MEDS: VANCOMYCIN 1.25GM/NS 250ML IVPB SCH ×4 (08:59→20:28)
[2021-04-08] MEDS: DEXMEDETOMIDINE HCL 400 MCG in 0.9%NACL 100ML 100 ML IV SCH ×2 (10:12→21:32)
[2021-04-08] MEDS: ATORVASTATIN 20 MG TABLET PO SCH (20:22)
[2021-04-08] MEDS: TRAZODONE HCL 50 MG TAB PO SCH (20:22)
[2021-04-08] MEDS: ACETAMINOPHEN 325 MG TAB PO PRN (20:23)
[2021-04-08] MEDS: SENNOSIDES 8.6 MG TABLET PO SCH (20:23)
[2021-04-08] MEDS: TAMSULOSIN HCL 0.4 MG CAP.ER.24H PO SCH (20:23)
[2021-04-08] MEDS: NACL NASAL SPRAY 120 SPRAY/BOTTLE NS PRN (20:23)
[2021-04-08] MEDS: BENZONATATE 100 MG CAPSULE PO PRN (20:23)
[2021-04-08] MEDS: INSULIN GLARGINE 100 UNITS/ML 10 ML VIAL SQ SCH (20:26)
[2021-04-09] VITALS (23 sets, daily range): BP systolic 100–153; BP diastolic 42–74
[2021-04-09] MEDS ORDERED: DEXTROSE 50%-WATER 50 ML DISP.SYRIN IV ONE (00:40)
[2021-04-09] MEDS: DEXMEDETOMIDINE HCL 400 MCG in 0.9%NACL 100ML 100 ML IV SCH ×4 (03:22→22:07)
[2021-04-09] MEDS: GUAIFENESIN-DM 200/20 MG 10 ML PO SCH ×6 (04:00→19:57)
[2021-04-09] MEDS: INSULIN HUMULIN R 100 UNIT/ML 3ML SQ SCH ×7 (05:05→17:58)
[2021-04-09] MEDS: CEFEPIME HCL 2 GM VIAL IVP SCH ×3 (05:09→19:58)
[2021-04-09 06:09] LABS: BASOPHILS % (AUTO) 0.1 % (0.0-5.0); EOSINOPHILS % (AUTO) 0.5 % (0.0-8.0); LYMPHOCYTES % (AUTO) 3.1 % (21.0-51.0); MEAN CORPUSCULAR HEMOGLOBIN 29.3 pg (27.0-33.0); MEAN CORPUSCULAR HGB CONC 31.8 g/dL (32.0-36.0); MEAN CORPUSCULAR VOLUME 92.2 fL (79-99); MONOCYTES % (AUTO) 2.3 % (3.0-13.0); NEUTROPHILS % (AUTO) 93.5 % (40.0-77.0); PLATELET COUNT (AUTO) 145 K/uL (130-400); RED BLOOD CELL COUNT(AUTO) 4.34 MIL/uL (4.50-6.20); RED CELL DISTRIBUTION WIDTH 13.3 % (11.0-15.5); WHITE BLOOD COUNT (AUTO) 15.4 K/uL (4.8-10.8)
[2021-04-09 06:23] LABS: CREATININE 0.5 mg/dL (0.5-1.5); POTASSIUM 3.6 mmol/L (3.5-5.1)
[2021-04-09 06:32] LABS: CRP QUANTITATIVE 221.5 mg/L (0.00-9.0)
[2021-04-09] MEDS: FLUCONAZOLE 100 MG TAB PO SCH (08:46)
[2021-04-09] MEDS: BUSPIRONE HCL 5 MG TABLET PO SCH ×3 (08:46→19:57)
[2021-04-09] MEDS: BIOTENE 44.3 ML SOLUTION MM SCH ×3 (08:47→19:59)
[2021-04-09] MEDS: LACTULOSE 20 GM/30 ML UDCUP PO SCH ×2 (08:47→19:58)
[2021-04-09] MEDS: ENOXAPARIN SODIUM 80 MG/0.8 ML SQ SCH ×2 (08:47→19:57)
[2021-04-09] MEDS: PANTOPRAZOLE 40 MG/VIAL IVP SCH (08:47)
[2021-04-09] MEDS: CLOPIDOGREL 75MG TAB PO SCH (08:47)
[2021-04-09] MEDS: DOCUSATE NA 100MG/10ML UDCUP PO SCH ×2 (08:52→19:56)
[2021-04-09] MEDS: MAG/ALUM/SIMETH 30ML 60 ML, LIDOCAINE HCL 2% VISCOUS 60 ML, DIPHENHYDRAMINE HCL 150 MG PO SCH ×9 (08:53→19:59)
[2021-04-09] MEDS: VANCOMYCIN 1.25GM/NS 250ML IVPB SCH ×4 (08:53→19:59)
[2021-04-09] MEDS: SOLU-MEDROL 40MG VIAL IVP SCH ×2 (09:00→19:58)
[2021-04-09] MEDS: POTASSIUM CHLORIDE 10% ELIXIR 20 MEQ/15 ML UDCUP PO PRN ×2 (12:03→14:02)
[2021-04-09] MEDS: INSULIN GLARGINE 100 UNITS/ML 10 ML VIAL SQ SCH (19:32)
[2021-04-09] MEDS: SENNOSIDES 8.6 MG TABLET PO SCH (19:56)
[2021-04-09] MEDS: TAMSULOSIN HCL 0.4 MG CAP.ER.24H PO SCH (19:56)
[2021-04-09] MEDS: TRAZODONE HCL 50 MG TAB PO SCH (19:57)
[2021-04-09] MEDS: ACETAMINOPHEN 325 MG TAB PO PRN (19:57)
[2021-04-09] MEDS: ATORVASTATIN 20 MG TABLET PO SCH (19:59)
[2021-04-09] MEDS: NACL NASAL SPRAY 120 SPRAY/BOTTLE NS PRN (20:01)
[2021-04-10] VITALS (22 sets, daily range): BP systolic 89–181; BP diastolic 41–87
[2021-04-10] MEDS: GUAIFENESIN-DM 200/20 MG 10 ML PO SCH ×6 (01:18→19:32)
[2021-04-10] MEDS: DEXMEDETOMIDINE HCL 400 MCG in 0.9%NACL 100ML 100 ML IV SCH ×4 (01:20→22:25)
[2021-04-10] MEDS: INSULIN HUMULIN R 100 UNIT/ML 3ML SQ SCH ×7 (01:20→18:00)
[2021-04-10 04:53] LABS: BASOPHILS % (AUTO) 0.1 % (0.0-5.0); HEMATOCRIT 36.4 % (42-54); LYMPHOCYTES % (AUTO) 3.7 % (21.0-51.0); MEAN CORPUSCULAR HGB CONC 31.9 g/dL (32.0-36.0); MONOCYTES % (AUTO) 3.1 % (3.0-13.0); NEUTROPHILS % (AUTO) 92.6 % (40.0-77.0); PLATELET COUNT (AUTO) 154 K/uL (130-400); RED CELL DISTRIBUTION WIDTH 13.5 % (11.0-15.5); WHITE BLOOD COUNT (AUTO) 13.7 K/uL (4.8-10.8)
[2021-04-10 05:05] LABS: MAGNESIUM 2.4 mg/dL (1.80-2.40); PHOSPHORUS 2.4 mg/dL (2.5-4.9)
[2021-04-10 06:34] LABS: ABG BASE EXCESS -2.4 mmol/L (-2.0-3.0); ABG HCO3 21.9 mmol/L (21.0-28.0); ABG OXYGEN SATURATION 84.3 % (95.0-99.0); ABG PCO2 37 mmHg (35-48)
[2021-04-10] MEDS: SOLU-MEDROL 40MG VIAL IVP SCH ×2 (06:53→19:31)
[2021-04-10] MEDS: MAG/ALUM/SIMETH 30ML 60 ML, LIDOCAINE HCL 2% VISCOUS 60 ML, DIPHENHYDRAMINE HCL 150 MG PO SCH ×9 (09:00→19:33)
[2021-04-10] MEDS: PANTOPRAZOLE 40 MG/VIAL IVP SCH (09:16)
[2021-04-10] MEDS: FLUCONAZOLE 100 MG TAB PO SCH (09:16)
[2021-04-10] MEDS: DOCUSATE NA 100MG/10ML UDCUP PO SCH ×2 (09:16→19:32)
[2021-04-10] MEDS: LACTULOSE 20 GM/30 ML UDCUP PO SCH ×2 (09:16→19:31)
[2021-04-10] MEDS: CLOPIDOGREL 75MG TAB PO SCH (09:17)
[2021-04-10] MEDS: ENOXAPARIN SODIUM 80 MG/0.8 ML SQ SCH ×2 (09:17→19:32)
[2021-04-10] MEDS: BUSPIRONE HCL 5 MG TABLET PO SCH ×3 (09:17→19:32)
[2021-04-10] MEDS: VANCOMYCIN 1.25GM/NS 250ML IVPB SCH ×4 (09:30→19:32)
[2021-04-10] MEDS: BIOTENE 44.3 ML SOLUTION MM SCH ×3 (09:33→19:33)
[2021-04-10] MEDS: CEFEPIME HCL 2 GM VIAL IVP SCH ×3 (09:36→19:30)
[2021-04-10] MEDS: ATORVASTATIN 20 MG TABLET PO SCH (19:30)
[2021-04-10] MEDS: TAMSULOSIN HCL 0.4 MG CAP.ER.24H PO SCH (19:31)
[2021-04-10] MEDS: ACETAMINOPHEN 325 MG TAB PO PRN (19:31)
[2021-04-10] MEDS: TRAZODONE HCL 50 MG TAB PO SCH (19:31)
[2021-04-10] MEDS: SENNOSIDES 8.6 MG TABLET PO SCH (19:33)
[2021-04-10] MEDS: INSULIN GLARGINE 100 UNITS/ML 10 ML VIAL SQ SCH (21:00)
[2021-04-11] VITALS (23 sets, daily range): BP systolic 99–161; BP diastolic 43–82
[2021-04-11] MEDS: GUAIFENESIN-DM 200/20 MG 10 ML PO SCH ×6 (01:15→21:05)
[2021-04-11] MEDS: INSULIN HUMULIN R 100 UNIT/ML 3ML SQ SCH ×7 (01:15→17:02)
[2021-04-11 04:17] LABS: BASOPHILS % (AUTO) 0.1 % (0.0-5.0); HEMATOCRIT 38.5 % (42-54); LYMPHOCYTES % (AUTO) 3.6 % (21.0-51.0); MEAN CORPUSCULAR HGB CONC 31.4 g/dL (32.0-36.0); MEAN CORPUSCULAR VOLUME 92.3 fL (79-99); MONOCYTES % (AUTO) 2.6 % (3.0-13.0); NEUTROPHILS % (AUTO) 93.1 % (40.0-77.0); PLATELET COUNT (AUTO) 171 K/uL (130-400); RED BLOOD CELL COUNT(AUTO) 4.17 MIL/uL (4.50-6.20); RED CELL DISTRIBUTION WIDTH 13.6 % (11.0-15.5); WHITE BLOOD COUNT (AUTO) 14.4 K/uL (4.8-10.8)
[2021-04-11 04:38] LABS: CREATININE 0.6 mg/dL (0.5-1.5); MAGNESIUM 2.5 mg/dL (1.80-2.40); PHOSPHORUS 1.8 mg/dL (2.5-4.9)
[2021-04-11 04:45] LABS: CRP QUANTITATIVE 186.1 mg/L (0.00-9.0)
[2021-04-11] MEDS: CEFEPIME HCL 2 GM VIAL IVP SCH ×3 (08:02→22:29)
[2021-04-11] MEDS: NEUTRA-PHOS PACKET 1 EACH PO SCH ×3 (08:34→21:05)
[2021-04-11] MEDS: ENOXAPARIN SODIUM 80 MG/0.8 ML SQ SCH ×2 (08:35→21:08)
[2021-04-11] MEDS: BUSPIRONE HCL 5 MG TABLET PO SCH ×3 (08:35→21:06)
[2021-04-11] MEDS: PANTOPRAZOLE 40 MG/VIAL IVP SCH (08:36)
[2021-04-11] MEDS: LACTULOSE 20 GM/30 ML UDCUP PO SCH ×2 (08:36→21:06)
[2021-04-11] MEDS: CLOPIDOGREL 75MG TAB PO SCH (08:37)
[2021-04-11] MEDS: SOLU-MEDROL 40MG VIAL IVP SCH ×2 (08:37→21:14)
[2021-04-11] MEDS: FLUCONAZOLE 100 MG TAB PO SCH (08:37)
[2021-04-11] MEDS: VANCOMYCIN 1.25GM/NS 250ML IVPB SCH ×4 (08:37→21:15)
[2021-04-11] MEDS: BIOTENE 44.3 ML SOLUTION MM SCH ×3 (08:38→21:08)
[2021-04-11] MEDS: MAG/ALUM/SIMETH 30ML 60 ML, LIDOCAINE HCL 2% VISCOUS 60 ML, DIPHENHYDRAMINE HCL 150 MG PO SCH ×3 (08:39)
[2021-04-11] MEDS: DOCUSATE NA 100MG/10ML UDCUP PO SCH ×2 (08:42→21:06)
[2021-04-11] MEDS: DEXMEDETOMIDINE HCL 400 MCG in 0.9%NACL 100ML 100 ML IV SCH ×2 (11:54→19:02)
[2021-04-11] MEDS: INSULIN GLARGINE 100 UNITS/ML 10 ML VIAL SQ SCH (21:03)
[2021-04-11] MEDS: ATORVASTATIN 20 MG TABLET PO SCH (21:05)
[2021-04-11] MEDS: TRAZODONE HCL 50 MG TAB PO SCH (21:05)
[2021-04-11] MEDS: SENNOSIDES 8.6 MG TABLET PO SCH (21:05)
[2021-04-11] MEDS: TAMSULOSIN HCL 0.4 MG CAP.ER.24H PO SCH (21:05)
[2021-04-11] MEDS ORDERED: 0.9%NACL 100ML 0 ML ONE (22:25)
[2021-04-11] MEDS: ACETAMINOPHEN 325 MG TAB PO PRN (22:38)
[2021-04-12] VITALS (22 sets, daily range): BP systolic 105–155; BP diastolic 41–79
[2021-04-12] MEDS: GUAIFENESIN-DM 200/20 MG 10 ML PO SCH ×6 (00:40→21:19)
[2021-04-12] MEDS: INSULIN HUMULIN R 100 UNIT/ML 3ML SQ SCH ×7 (00:43→17:54)
[2021-04-12] MEDS: DEXMEDETOMIDINE HCL 400 MCG in 0.9%NACL 100ML 100 ML IV SCH ×3 (03:00→13:38)
[2021-04-12 04:32] LABS: BASOPHILS % (AUTO) 0.1 % (0.0-5.0); HEMATOCRIT 35.8 % (42-54); LYMPHOCYTES % (AUTO) 3.6 % (21.0-51.0); MEAN CORPUSCULAR HEMOGLOBIN 29.4 pg (27.0-33.0); MEAN CORPUSCULAR HGB CONC 31.6 g/dL (32.0-36.0); MONOCYTES % (AUTO) 2.7 % (3.0-13.0); PLATELET COUNT (AUTO) 140 K/uL (130-400); RED BLOOD CELL COUNT(AUTO) 3.85 MIL/uL (4.50-6.20); RED CELL DISTRIBUTION WIDTH 13.7 % (11.0-15.5); WHITE BLOOD COUNT (AUTO) 11.7 K/uL (4.8-10.8)
[2021-04-12 04:39] LABS: CREATININE 0.6 mg/dL (0.5-1.5); POTASSIUM 3.8 mmol/L (3.5-5.1)
[2021-04-12] MEDS: CEFEPIME HCL 2 GM VIAL IVP SCH ×2 (06:33→14:17)
[2021-04-12] MEDS: DOCUSATE NA 100MG/10ML UDCUP PO SCH ×2 (07:44→21:21)
[2021-04-12] MEDS: PANTOPRAZOLE 40 MG/VIAL IVP SCH (07:45)
[2021-04-12] MEDS: VANCOMYCIN 1.25GM/NS 250ML IVPB SCH ×4 (07:45→21:19)
[2021-04-12] MEDS: SOLU-MEDROL 40MG VIAL IVP SCH ×2 (07:45→21:19)
[2021-04-12] MEDS: LACTULOSE 20 GM/30 ML UDCUP PO SCH ×2 (07:45→21:21)
[2021-04-12] MEDS: BUSPIRONE HCL 5 MG TABLET PO SCH ×3 (07:46→21:19)
[2021-04-12] MEDS: FLUCONAZOLE 100 MG TAB PO SCH (07:46)
[2021-04-12] MEDS: ENOXAPARIN SODIUM 80 MG/0.8 ML SQ SCH ×2 (07:46→21:23)
[2021-04-12] MEDS: CLOPIDOGREL 75MG TAB PO SCH (07:47)
[2021-04-12] MEDS: NEUTRA-PHOS PACKET 1 EACH PO SCH (07:48)
[2021-04-12] MEDS: BIOTENE 44.3 ML SOLUTION MM SCH ×3 (07:56→21:32)
[2021-04-12] MEDS ORDERED: AMIODARONE 150MG VIAL 150 MG in DEXTROSE 5%-WATER 100 ML IV SCH (13:30)
[2021-04-12] MEDS: AMIODARONE 900MG VIAL 360 MG in DEXTROSE 5%-WATER 200 ML IV SCH ×2 (14:14→21:30)
[2021-04-12] MEDS: ONDANSETRON 4MG INJ IV PRN (18:43)
[2021-04-12] MEDS: TAMSULOSIN HCL 0.4 MG CAP.ER.24H PO SCH (21:20)
[2021-04-12] MEDS: TRAZODONE HCL 50 MG TAB PO SCH (21:20)
[2021-04-12] MEDS: ATORVASTATIN 20 MG TABLET PO SCH (21:20)
[2021-04-12] MEDS: SENNOSIDES 8.6 MG TABLET PO SCH (21:20)
[2021-04-12] MEDS: INSULIN GLARGINE 100 UNITS/ML 10 ML VIAL SQ SCH (21:22)
[2021-04-12] MEDS: VANCOMYCIN 1.5GM/NS 250ML IV SCH ×2 (21:57)
[2021-04-13] VITALS (23 sets, daily range): BP systolic 94–151; BP diastolic 49–78
[2021-04-13] MEDS: GUAIFENESIN-DM 200/20 MG 10 ML PO SCH ×6 (00:39→22:26)
[2021-04-13] MEDS: CEFEPIME HCL 2 GM VIAL IVP SCH ×4 (00:39→22:28)
[2021-04-13] MEDS: INSULIN HUMULIN R 100 UNIT/ML 3ML SQ SCH ×7 (01:50→18:42)
[2021-04-13] MEDS: DEXMEDETOMIDINE HCL 400 MCG in 0.9%NACL 100ML 100 ML IV SCH (04:18)
[2021-04-13] MEDS ORDERED: DEXMEDETOMIDINE HCL 400 MCG in 0.9%NACL 100ML 100 ML IV SCH (04:30)
[2021-04-13 04:49] LABS: CREATININE 0.5 mg/dL (0.5-1.5); POTASSIUM 3.8 mmol/L (3.5-5.1)
[2021-04-13 05:16] LABS: ABG HCO3 33.8 mmol/L (21.0-28.0); ABG OXYGEN SATURATION 96.4 % (95.0-99.0); ABG PCO2 59 mmHg (35-48)
[2021-04-13] MEDS: ONDANSETRON 4MG INJ IV PRN (07:55)
[2021-04-13] MEDS: PANTOPRAZOLE 40 MG/VIAL IVP SCH (08:40)
[2021-04-13] MEDS: ENOXAPARIN SODIUM 80 MG/0.8 ML SQ SCH (08:41)
[2021-04-13] MEDS: SOLU-MEDROL 40MG VIAL IVP SCH ×2 (08:41→22:27)
[2021-04-13] MEDS: DOCUSATE NA 100MG/10ML UDCUP PO SCH ×2 (09:00→22:27)
[2021-04-13] MEDS: LACTULOSE 20 GM/30 ML UDCUP PO SCH ×2 (09:00→22:27)
[2021-04-13] MEDS: BUSPIRONE HCL 5 MG TABLET PO SCH ×3 (09:00→22:27)
[2021-04-13] MEDS: ENOXAPARIN SODIUM 60 MG/0.6 ML SQ SCH ×2 (09:00→22:28)
[2021-04-13] MEDS: CLOPIDOGREL 75MG TAB PO SCH (09:00)
[2021-04-13] MEDS: BIOTENE 44.3 ML SOLUTION MM SCH ×3 (10:25→22:29)
[2021-04-13] MEDS: VANCOMYCIN 1.5GM/NS 250ML IV SCH ×4 (10:25→22:41)
[2021-04-13] MEDS: AMIODARONE 900MG VIAL 360 MG in DEXTROSE 5%-WATER 200 ML IV SCH (10:26)
[2021-04-13 11:20] LABS: INR 0.93 (0.85-1.15); PROTHROMBIN TIME 10.2 SEC (9.6-11.6)
[2021-04-13] MEDS ORDERED: DEXMEDETOMIDINE 400MCG/NS100ML IV ONE (20:11)
[2021-04-13] MEDS: TAMSULOSIN HCL 0.4 MG CAP.ER.24H PO SCH (22:28)
[2021-04-13] MEDS: SENNOSIDES 8.6 MG TABLET PO SCH (22:28)
[2021-04-13] MEDS: TRAZODONE HCL 50 MG TAB PO SCH (22:28)
[2021-04-13] MEDS: ATORVASTATIN 20 MG TABLET PO SCH (22:28)
[2021-04-13] MEDS: INSULIN GLARGINE 100 UNITS/ML 10 ML VIAL SQ SCH (22:30)
[2021-04-14] VITALS (23 sets, daily range): BP systolic 109–170; BP diastolic 44–112
[2021-04-14] MEDS: GUAIFENESIN-DM 200/20 MG 10 ML PO SCH ×7 (00:13→23:42)
[2021-04-14] MEDS: INSULIN HUMULIN R 100 UNIT/ML 3ML SQ SCH ×8 (00:16→23:43)
[2021-04-14] MEDS ORDERED: DEXMEDETOMIDINE 400MCG/NS100ML IV ONE (01:54)
[2021-04-14 03:56] LABS: ABG BASE EXCESS 7.3 mmol/L (-2.0-3.0); ABG HCO3 33.7 mmol/L (21.0-28.0); ABG OXYGEN SATURATION 91.8 % (95.0-99.0); ABG PCO2 54 mmHg (35-48)
[2021-04-14 04:57] LABS: BASOPHILS % (AUTO) 0.1 % (0.0-5.0); HEMATOCRIT 38.7 % (42-54); LYMPHOCYTES % (AUTO) 3.5 % (21.0-51.0); MEAN CORPUSCULAR HEMOGLOBIN 29.2 pg (27.0-33.0); MEAN CORPUSCULAR HGB CONC 30.7 g/dL (32.0-36.0); MEAN CORPUSCULAR VOLUME 95.1 fL (79-99); MONOCYTES % (AUTO) 2.2 % (3.0-13.0); NEUTROPHILS % (AUTO) 93.8 % (40.0-77.0); PLATELET COUNT (AUTO) 134 K/uL (130-400); RED BLOOD CELL COUNT(AUTO) 4.07 MIL/uL (4.50-6.20); RED CELL DISTRIBUTION WIDTH 13.8 % (11.0-15.5); WHITE BLOOD COUNT (AUTO) 10.8 K/uL (4.8-10.8)
[2021-04-14 05:15] LABS: CREATININE 0.6 mg/dL (0.5-1.5); MAGNESIUM 2.6 mg/dL (1.80-2.40); PHOSPHORUS 2.2 mg/dL (2.5-4.9); POTASSIUM 3.7 mmol/L (3.5-5.1)
[2021-04-14] MEDS: CEFEPIME HCL 2 GM VIAL IVP SCH ×3 (06:23→23:42)
[2021-04-14] MEDS: LACTULOSE 20 GM/30 ML UDCUP PO SCH ×2 (08:21→20:28)
[2021-04-14] MEDS: DOCUSATE NA 100MG/10ML UDCUP PO SCH ×2 (08:21→20:28)
[2021-04-14] MEDS: ENOXAPARIN SODIUM 60 MG/0.6 ML SQ SCH ×3 (08:22→20:29)
[2021-04-14] MEDS: CLOPIDOGREL 75MG TAB PO SCH (08:22)
[2021-04-14] MEDS: POTASSIUM CHLORIDE 10% ELIXIR 20 MEQ/15 ML UDCUP PO PRN ×2 (08:22→08:26)
[2021-04-14] MEDS: PANTOPRAZOLE 40 MG/VIAL IVP SCH (08:22)
[2021-04-14] MEDS: SOLU-MEDROL 40MG VIAL IVP SCH ×2 (08:22→20:28)
[2021-04-14] MEDS: BIOTENE 44.3 ML SOLUTION MM SCH ×3 (08:26→20:33)
[2021-04-14] MEDS: BUSPIRONE HCL 5 MG TABLET PO SCH ×3 (08:26→20:28)
[2021-04-14] MEDS: VANCOMYCIN 1.5GM/NS 250ML IV SCH ×2 (09:43)
[2021-04-14] MEDS: DEXMEDETOMIDINE 400MCG/NS100ML IV SCH (15:14)
[2021-04-14] MEDS: VANCOMYCIN 1G 1.25 GM in 0.9% NACL 250ML 250 ML IV SCH (20:28)
[2021-04-14] MEDS: TRAZODONE HCL 50 MG TAB PO SCH (20:29)
[2021-04-14] MEDS: TAMSULOSIN HCL 0.4 MG CAP.ER.24H PO SCH (20:29)
[2021-04-14] MEDS: SENNOSIDES 8.6 MG TABLET PO SCH (20:29)
[2021-04-14] MEDS: ATORVASTATIN 20 MG TABLET PO SCH (20:29)
[2021-04-14] MEDS: INSULIN GLARGINE 100 UNITS/ML 10 ML VIAL SQ SCH (20:31)
[2021-04-15] VITALS (23 sets, daily range): BP systolic 94–164; BP diastolic 42–94
[2021-04-15] MEDS: GUAIFENESIN-DM 200/20 MG 10 ML PO SCH ×6 (04:13→23:54)
[2021-04-15] MEDS: DEXMEDETOMIDINE 400MCG/NS100ML IV SCH ×3 (04:13→17:59)
[2021-04-15] MEDS: INSULIN HUMULIN R 100 UNIT/ML 3ML SQ SCH ×6 (05:17→15:36)
[2021-04-15] MEDS: CEFEPIME HCL 2 GM VIAL IVP SCH ×3 (06:27→23:53)
[2021-04-15] MEDS: LACTULOSE 20 GM/30 ML UDCUP PO SCH ×2 (08:14→20:41)
[2021-04-15] MEDS: SOLU-MEDROL 40MG VIAL IVP SCH ×2 (08:14→20:41)
[2021-04-15] MEDS: DOCUSATE NA 100MG/10ML UDCUP PO SCH ×2 (08:14→20:41)
[2021-04-15] MEDS: BUSPIRONE HCL 5 MG TABLET PO SCH ×3 (08:14→20:41)
[2021-04-15] MEDS: CLOPIDOGREL 75MG TAB PO SCH (08:14)
[2021-04-15] MEDS: PANTOPRAZOLE 40 MG/VIAL IVP SCH (08:14)
[2021-04-15] MEDS: VANCOMYCIN 1G 1.25 GM in 0.9% NACL 250ML 250 ML IV SCH ×2 (08:15→20:41)
[2021-04-15] MEDS: ENOXAPARIN SODIUM 60 MG/0.6 ML SQ SCH ×2 (08:15→20:46)
[2021-04-15] MEDS: BIOTENE 44.3 ML SOLUTION MM SCH ×3 (08:16→21:04)
[2021-04-15] MEDS ORDERED: VANCOMYCIN PROTOCOL PER PHARMACY IV SCH (10:30)
[2021-04-15] MEDS ORDERED: NOREPINEPHRINE 4MG/NS 250ML 250 ML IV SCH (14:00)
[2021-04-15] MEDS ORDERED: MIDAZOLAM 50MG-0.9% NS 50ML 50 ML BAG IV SCH (15:00)
[2021-04-15] MEDS ORDERED: MIDAZOLAM 100MG-0.9% NS 100ML 100 ML IV SCH (15:00)
[2021-04-15] MEDS ORDERED: FENTANYL 2500MCG+NS 250ML 250 ML IV SCH (15:00)
[2021-04-15] MEDS ORDERED: FENTANYL CITRATE PF 0.05 MG/ML 1,000 MCG in 0.9%NACL 100ML 100 ML IVPB SCH (15:00)
[2021-04-15] MEDS: TRAZODONE HCL 50 MG TAB PO SCH (20:41)
[2021-04-15] MEDS: ATORVASTATIN 20 MG TABLET PO SCH (20:41)
[2021-04-15] MEDS: TAMSULOSIN HCL 0.4 MG CAP.ER.24H PO SCH (20:41)
[2021-04-15] MEDS: SENNOSIDES 8.6 MG TABLET PO SCH (20:42)
[2021-04-15] MEDS: INSULIN GLARGINE 100 UNITS/ML 10 ML VIAL SQ SCH (20:44)
[2021-04-16] VITALS (25 sets, daily range): BP systolic 81–152; BP diastolic 44–104
[2021-04-16] MEDS: GUAIFENESIN-DM 200/20 MG 10 ML PO SCH ×6 (04:03→23:56)
[2021-04-16 04:21] LABS: BASOPHILS % (AUTO) 0.1 % (0.0-5.0); EOSINOPHILS % (AUTO) 0.1 % (0.0-8.0); HEMATOCRIT 33.1 % (42-54); LYMPHOCYTES % (AUTO) 4.6 % (21.0-51.0); MEAN CORPUSCULAR HEMOGLOBIN 29.6 pg (27.0-33.0); MEAN CORPUSCULAR HGB CONC 31.1 g/dL (32.0-36.0); MEAN CORPUSCULAR VOLUME 95.1 fL (79-99); MONOCYTES % (AUTO) 2.4 % (3.0-13.0); NEUTROPHILS % (AUTO) 92.3 % (40.0-77.0); PLATELET COUNT (AUTO) 118 K/uL (130-400); RED BLOOD CELL COUNT(AUTO) 3.48 MIL/uL (4.50-6.20); RED CELL DISTRIBUTION WIDTH 13.8 % (11.0-15.5); WHITE BLOOD COUNT (AUTO) 8.4 K/uL (4.8-10.8)
[2021-04-16 04:46] LABS: ALBUMIN 1.8 g/dL (3.5-5.0); BILIRUBIN,TOTAL 0.4 mg/dL (0.2-1.0); CREATININE 0.5 mg/dL (0.5-1.5); MAGNESIUM 2.4 mg/dL (1.80-2.40); POTASSIUM 3.5 mmol/L (3.5-5.1); TOTAL PROTEIN, SERUM 5.6 g/dL (6.0-8.3)
[2021-04-16] MEDS: CEFEPIME HCL 2 GM VIAL IVP SCH ×3 (06:26→23:56)
[2021-04-16] MEDS: INSULIN HUMULIN R 100 UNIT/ML 3ML SQ SCH ×6 (06:28→18:00)
[2021-04-16] MEDS: DEXMEDETOMIDINE 400MCG/NS100ML IV SCH ×3 (06:56→15:32)
[2021-04-16 07:21] LABS: ABG HCO3 35.7 mmol/L (21.0-28.0); ABG OXYGEN SATURATION 94.1 % (95.0-99.0); ABG PCO2 53 mmHg (35-48)
[2021-04-16] MEDS: DOCUSATE NA 100MG/10ML UDCUP PO SCH (07:31)
[2021-04-16] MEDS: LACTULOSE 20 GM/30 ML UDCUP PO SCH (07:31)
[2021-04-16] MEDS: PANTOPRAZOLE 40 MG/VIAL IVP SCH (07:39)
[2021-04-16] MEDS: BUSPIRONE HCL 5 MG TABLET PO SCH ×3 (07:39→20:21)
[2021-04-16] MEDS: SOLU-MEDROL 40MG VIAL IVP SCH ×2 (07:39→20:17)
[2021-04-16] MEDS: CLOPIDOGREL 75MG TAB PO SCH (07:39)
[2021-04-16] MEDS: ENOXAPARIN SODIUM 60 MG/0.6 ML SQ SCH ×2 (07:40→20:14)
[2021-04-16] MEDS: BIOTENE 44.3 ML SOLUTION MM SCH ×3 (07:40→20:19)
[2021-04-16] MEDS: VANCOMYCIN 1G 1.25 GM in 0.9% NACL 250ML 250 ML IV SCH ×2 (07:40→20:16)
[2021-04-16] MEDS ORDERED: DOCUSATE NA 100MG/10ML UDCUP PO PRN (14:00)
[2021-04-16] MEDS ORDERED: LACTULOSE 20 GM/30 ML UDCUP PO PRN (14:00)
[2021-04-16] MEDS: DILTIAZEM 60MG TAB GT SCH ×2 (14:12→20:21)
[2021-04-16] MEDS: TRAZODONE HCL 50 MG TAB PO SCH (20:13)
[2021-04-16] MEDS: TAMSULOSIN HCL 0.4 MG CAP.ER.24H PO SCH (20:14)
[2021-04-16] MEDS: SENNOSIDES 8.6 MG TABLET PO SCH (20:15)
[2021-04-16] MEDS: ATORVASTATIN 20 MG TABLET PO SCH (20:15)
[2021-04-16] MEDS: INSULIN GLARGINE 100 UNITS/ML 10 ML VIAL SQ SCH (20:19)
[2021-04-17] VITALS (20 sets, daily range): BP systolic 98–178; BP diastolic 42–88
[2021-04-17] MEDS: DEXMEDETOMIDINE 400MCG/NS100ML IV SCH ×2 (00:18→07:24)
[2021-04-17] MEDS: INSULIN HUMULIN R 100 UNIT/ML 3ML SQ SCH ×4 (00:48→16:08)
[2021-04-17 04:11] LABS: BASOPHILS % (AUTO) 0.1 % (0.0-5.0); EOSINOPHILS % (AUTO) 0.2 % (0.0-8.0); HEMATOCRIT 33.8 % (42-54); LYMPHOCYTES % (AUTO) 4.4 % (21.0-51.0); MEAN CORPUSCULAR VOLUME 90.6 fL (79-99); MONOCYTES % (AUTO) 1.9 % (3.0-13.0); NEUTROPHILS % (AUTO) 92.9 % (40.0-77.0); PLATELET COUNT (AUTO) 133 K/uL (130-400); RED BLOOD CELL COUNT(AUTO) 3.73 MIL/uL (4.50-6.20); RED CELL DISTRIBUTION WIDTH 13.2 % (11.0-15.5); WHITE BLOOD COUNT (AUTO) 8.4 K/uL (4.8-10.8)
[2021-04-17 04:39] LABS: BILIRUBIN,TOTAL 0.5 mg/dL (0.2-1.0); CREATININE 0.5 mg/dL (0.5-1.5); CRP QUANTITATIVE 45.6 mg/L (0.00-9.0); MAGNESIUM 2.1 mg/dL (1.80-2.40); PHOSPHORUS 2.4 mg/dL (2.5-4.9); POTASSIUM 3.9 mmol/L (3.5-5.1)
[2021-04-17] MEDS: GUAIFENESIN-DM 200/20 MG 10 ML PO SCH ×4 (05:26→16:00)
[2021-04-17] MEDS: CEFEPIME HCL 2 GM VIAL IVP SCH (06:42)
[2021-04-17] MEDS ORDERED: SENNOSIDES 8.6 MG TABLET PO PRN (07:30)
[2021-04-17 07:42] LABS: ABG HCO3 33.6 mmol/L (21.0-28.0); ABG OXYGEN SATURATION 94.3 % (95.0-99.0); ABG PCO2 50 mmHg (35-48)
[2021-04-17] MEDS: SOLU-MEDROL 40MG VIAL IVP SCH (07:55)
[2021-04-17] MEDS: BIOTENE 44.3 ML SOLUTION MM SCH (07:56)
[2021-04-17] MEDS: PANTOPRAZOLE 40 MG/VIAL IVP SCH (07:56)
[2021-04-17] MEDS: BUSPIRONE HCL 5 MG TABLET PO SCH (07:56)
[2021-04-17] MEDS: ENOXAPARIN SODIUM 60 MG/0.6 ML SQ SCH (07:56)
[2021-04-17] MEDS: CLOPIDOGREL 75MG TAB PO SCH (07:56)
[2021-04-17] MEDS: DILTIAZEM 60MG TAB GT SCH (07:58)
[2021-04-17] MEDS: VANCOMYCIN 1G 1.25 GM in 0.9% NACL 250ML 250 ML IV SCH (10:17)
[2021-04-17] MEDS ORDERED: VANCOMYCIN 1G 1.25 GM in 0.9% NACL 250ML 250 ML IV SCH (10:42)
[2021-04-17] MEDS ORDERED: DILTIAZEM 25MG INJ IVP ONE (11:31)
[2021-04-17] MEDS ORDERED: PHARMACY COMMUNICATION MISC SCH (12:00)
[2021-04-17] MEDS ORDERED: DILTIAZEM 50MG VIAL IV SCH (12:00)
[2021-04-17] MEDS ORDERED: DILTIAZEM 125MG+100 ML NS 125 ML IV SCH (12:30)
[2021-04-17] MEDS: LORAZEPAM 2 MG/ML 1 ML VIAL IVP SCH ×4 (13:55→16:09)
[2021-04-17] MEDS ORDERED: GLYCOPYRROLATE 1 MG/5 ML SYRINGE IV SCH (14:00)
[2021-04-17] MEDS ORDERED: MORPHINE 2 MG SYG IVP SCH (14:00)
[2021-04-19] MEDS ORDERED: KETAMINE HCL 100 MG/ML 5ML VIAL IJ ONE (01:08)
== END 2021-04-17 14:14 | DRG 177 ==
LOC: EDH 16:49 → EDHIP 17:41 → 2AH 03-25 23:52
PROVIDERS: ADMIT Internal Medicine; ATTEND Internal Medicine
PROC: XW033E5 Introduction of Remdesivir Anti-infective into Peripheral Vein, Percutaneous Approach, New Technology Group 5 (ICD-10-PCS; 2021-03-24)
PROC: XW0DXM6 Introduction of Baricitinib into Mouth and Pharynx, External Approach, New Technology Group 6 (ICD-10-PCS; 2021-03-25)
PROC: 5A0935A Assistance with Respiratory Ventilation, Less than 24 Consecutive Hours, High Flow/Velocity Cannula (ICD-10-PCS; 2021-03-27)
PROC: 5A0935A Assistance with Respiratory Ventilation, Less than 24 Consecutive Hours, High Flow/Velocity Cannula (ICD-10-PCS; 2021-03-28)
PROC: 5A0935A Assistance with Respiratory Ventilation, Less than 24 Consecutive Hours, High Flow/Velocity Cannula (ICD-10-PCS; 2021-03-30)
PROC: 5A0935A Assistance with Respiratory Ventilation, Less than 24 Consecutive Hours, High Flow/Velocity Cannula (ICD-10-PCS; 2021-03-31)
PROC: 5A09457 Assistance with Respiratory Ventilation, 24-96 Consecutive Hours, Continuous Positive Airway Pressure (ICD-10-PCS; 2021-04-02)
PROC: 5A09557 Assistance with Respiratory Ventilation, Greater than 96 Consecutive Hours, Continuous Positive Airway Pressure (ICD-10-PCS; 2021-04-05)
PROC: 02HV33Z Insertion of Infusion Device into Superior Vena Cava, Percutaneous Approach (ICD-10-PCS; principal; 2021-04-14)
DX: U07.1 COVID-19 (principal); J12.82 Pneumonia due to coronavirus disease 2019; J80 Acute respiratory distress syndrome; J15.212 Pneumonia due to Methicillin resistant Staphylococcus aureus; E87.1 Hypo-osmolality and hyponatremia; B37.0 Candidal stomatitis; E87.0 Hyperosmolality and hypernatremia; D68.69 Other thrombophilia; E78.5 Hyperlipidemia, unspecified; E87.6 Hypokalemia; E11.9 Type 2 diabetes mellitus without complications; D72.810 Lymphocytopenia; I48.91 Unspecified atrial fibrillation; D69.6 Thrombocytopenia, unspecified; F41.9 Anxiety disorder, unspecified; E78.00 Pure hypercholesterolemia, unspecified; N40.0 Benign prostatic hyperplasia without lower urinary tract symptoms; I11.9 Hypertensive heart disease without heart failure; K59.00 Constipation, unspecified; G47.00 Insomnia, unspecified; D64.9 Anemia, unspecified; E87.8 Other disorders of electrolyte and fluid balance, not elsewhere classified; Z87.891 Personal history of nicotine dependence
CPT/HCPCS: 36415; 36600; 71045; 74018; 80048; 80053; 80061; 80202; 82435; 82550; 82728; 82803; 82947; 82948; 83036; 83605; 83615; 83735; 83880; 84100; 84132; 84145; 84295; 84484; 85018; 85025; 85378; 85610; 85651; 85730; 86140; 87040; 87071; 87077; 87088; 87186; 87205; 87635; 87804; 93005; 93306; 93970; 94660; 97039; A4344; C1751; C1894; C9113; C9803; G0378; J0282; J0360; J0456; J0692; J0696; J1100; J1450; J1650; J1815; J1940; J2060; J2405; J2920; J3010; J3370; J3490; J7030; J7050; J7060; J7070